=== PATIENT | male | born 1955 | race Caucasian/White ===

== ENCOUNTER 2017-08-17 09:46 | Emergency (ER) | payer MEDICAID ==
[2017-08-17] MEDS ORDERED: ONDANSETRON 4 MG TAB.RAPDIS PO ONE (10:15)
--- NOTE | 2017-08-17 10:16 | ER Document Report ---
ED General - General Chief Complaint: Probable Seizure Stated Complaint: POSSIBLE SEIZURE Time Seen by Provider: 08/17/17 10:09 Mode of Arrival: Medic Information source: Patient Notes: Patient is a 62-year-old male who presents to the ER today via EMS for syncopal episode per patient. Patient states that he felt lightheaded and fell down at his home where he passed out for an unknown amount of time as it was unwitnessed because he was by himself. Patient has never been here before, but EMS reports that they have picked him up multiple times for seizures due to alcohol withdrawal. Patient states that he last had alcohol "weeks ago." He denies drinking yesterday. He denies any history of seizures, states that he "just passed out." Patient denies any history of passing out, cardiac history. He denies any headache or other symptoms at this time. - Related Data Allergies/Adverse Reactions: No Known Allergies Allergy (Unverified 08/17/17 13:36) Past Medical History - General Information source: Patient, Emergency Med Personnel - Social History Smoking Status: Current Every Day Smoker Family History: Reviewed & Not Pertinent Review of Systems - Review of Systems Constitutional: No symptoms reported EENT: No symptoms reported Cardiovascular: No symptoms reported Respiratory: No symptoms reported Gastrointestinal: No symptoms reported Genitourinary: No symptoms reported Male Genitourinary: No symptoms reported Musculoskeletal: No symptoms reported Skin: No symptoms reported Hematologic/Lymphatic: No symptoms reported Neurological/Psychological: See HPI Physical Exam - Vital signs Vitals: Resp Pulse Ox 18 94 08/17/17 09:59 08/17/17 09:59 - Notes Notes: PHYSICAL EXAMINATION: GENERAL: Disheveled, dirty, in no acute distress. HEAD: Atraumatic, normocephalic. EYES: Pupils equal round and reactive to light, extraocular movements intact, sclera anicteric, conjunctiva are normal. ENT: ear canals without erythema or foreign body, TMs pearly hilliard with good bony landmarks, nares patent, oropharynx clear without exudates. Moist mucous membranes. Airway patent NECK: Normal range of motion, supple without lymphadenopathy LUNGS: CTAB and equal. No wheezes rales or rhonchi. HEART: Regular rate and rhythm without murmurs ABDOMEN: Soft, no tenderness. No guarding, no rebound BACK: no vertebral tenderness, normal ROM GI/: no CVA tenderness EXTREMITIES: Normal range of motion, no pitting edema. No cyanosis. NEUROLOGICAL: Cranial nerves grossly intact. Normal sensory/motor exams. Good and equal strength bilaterally, Kernig and Brudzinski's signs negative, Romberg' s test normal, normal heel to crow testing PSYCH: Normal mood, normal affect. SKIN: Warm, Dry, normal turgor, no rashes or lesions noted Course - Re-evaluation Re-evalutation: 08/17/17 13:11 Patient is alert and oriented 3, tells me he has no history of seizures and that he "just passed out." Patient is disheveled but alcohol level was less than [address] of the head negative for any acute pathology, IV was attempted for fluids and antibiotics as patient does have 152 white blood cells and moderate leukocytes with positive nitrites on urinalysis today. I did talk to patient about this and he states that it has been burning whenever he urinates. He states this been going on for approximately a week. He denies any back pain. We attempted to give him Rocephin IV here, but an IV was unable to be placed, patient after 3 attempts of placing an IV refused to have any more treatment here and just wanted to go home. I will send patient home on oral antibiotics. I did offer him a Rocephin injection IM but he refuses this as well stating "I promise I will take my antibiotics." CK was also elevated today, over 1,000. I advised patient of this abnormal lab value, stating that we usually do admit for IV fluids at least but he refuses. pt wants to leave, refuses any further treatment here in ER. 08/18/17 07:20 - Vital Signs Vital signs: Temp Pulse Resp BP Pulse Ox 98.5 F 16 188/90 H 96 08/17/17 10:05 08/17/17 12:00 08/17/17 10:05 08/17/17 12:00 - Laboratory Result Diagrams: 08/17/17 10:04 08/17/17 10:04 Laboratory results interpreted by me: 08/17/17 08/17/17 08/17/17 10:04 10:04 10:04 RDW 14.4 H Plt Count 125 L Glucose 163 H Direct Bilirubin 0.6 H AST 142 H ALT 80 H Creatine Kinase 1360 H CK-MB (CK-2) 13.30 H Urine Protein Urine Ketones Urine Blood Urine Nitrite Urine Urobilinogen Ur Leukocyte Esterase 08/17/17 11:19 RDW Plt Count Glucose Direct Bilirubin AST ALT Creatine Kinase CK-MB (CK-2) Urine Protein >=500 H Urine Ketones TRACE H Urine Blood MODERATE H Urine Nitrite POSITIVE H Urine Urobilinogen 4.0 H Ur Leukocyte Esterase MODERATE H Discharge - Discharge Clinical Impression: Syncope and collapse UTI (urinary tract infection) Qualifiers: Urinary tract infection type: site unspecified Hematuria presence: with hematuria Qualified Code(s): N39.0 - Urinary tract infection, site not specified Condition: Stable Disposition: HOME, SELF-CARE Additional Instructions: Return immediately for any new or worsening symptoms. Follow up with primary care provider, call tomorrow to make followup appointment. Prescriptions: Cephalexin Monohydrate [Keflex 500 mg Capsule] 500 mg PO BID 10 Days #20 capsule Referrals: RYAN PRADO PA [NO LOCAL MD] - Follow up as needed
[2017-08-17 10:45] LABS: ABSOLUTE EOSINOPHILS # (AUTO) 0.1 10^3/uL (0.0-0.6); ABSOLUTE LYMPHOCYTES (AUTO) 1.2 10^3/uL (0.5-4.7); ABSOLUTE MONOCYTES (AUTO) 0.7 10^3/uL (0.1-1.4); ABSOLUTE NEUT (AUTO) 4.4 10^3/uL (1.7-8.2); BASOPHILS % (AUTO) 0.5 % (0-2); EOSINOPHILS % (AUTO) 1.2 % (0-6); HEMATOCRIT 44.6 % (37.9-51.0); HEMOGLOBIN 15.5 g/dL (13.5-17.0); MEAN CORPUSCULAR HEMOGLOBIN 32.3 pg (27.0-33.4); MEAN CORPUSCULAR HGB CONC 34.8 g/dL (32.0-36.0); MEAN CORPUSCULAR VOLUME 93 fl (80-97); MONOCYTES % (AUTO) 11.5 % (3-13); PLATELET COUNT 125 10^3/uL (150-450); RED BLOOD COUNT 4.81 10^6/uL (4.35-5.55); RED CELL DISTRIBUTION WIDTH 14.4 % (11.5-14.0); SEGMENTED NEUTROPHILS % (AUTO) 67.8 % (42-78); TOTAL CELLS COUNTED % (AUTO) 100 %; WHITE BLOOD COUNT 6.5 10^3/uL (4.0-10.5)
[2017-08-17 10:54] LABS: ALANINE AMINOTRANSFERASE 80 U/L (21-72); ALBUMIN 4.4 g/dL (3.5-5.0); ALKALINE PHOSPHATASE 81 U/L (38-126); ANION GAP 16 (5-19); ASPARTATE AMINO TRANSFERASE 142 U/L (17-59); BILIRUBIN,DIRECT 0.6 mg/dL (0.0-0.4); BILIRUBIN,TOTAL 1.3 mg/dL (0.2-1.3); BLOOD UREA NITROGEN 17 mg/dL (7-20); CALCIUM 9.7 mg/dL (8.4-10.2); CARBON DIOXIDE 23 mmol/L (22-30); CHLORIDE 102 mmol/L (98-107); CREATINE KINASE 1360 U/L (55-170); GLUCOSE 163 mg/dL (75-110); POTASSIUM 4.2 mmol/L (3.6-5.0); SODIUM 141.2 mmol/L (137-145)
[2017-08-17 10:55] LABS: ALCOHOL < 10 mg/dL (NONE DETECTED)
[2017-08-17 11:06] LABS: CREATINE KINASE MB 13.3 ng/mL (<4.55)
[2017-08-17 11:10] LABS: TROPONIN I 0.037 ng/mL
[2017-08-17 11:12] VITALS: BP 188/90
--- NOTE | 2017-08-17 11:17 | RADIOLOGY REPORT (SQ) ---
EXAM DESCRIPTION: CT HEAD WITHOUT COMPLETED DATE/TIME: 08/17/2017 10:58 am REASON FOR STUDY: syncope, alcohol COMPARISON: None. TECHNIQUE: Axial images acquired through the brain without intravenous contrast. Images reviewed wi th bone, brain and subdural windows. Additional sagittal and coronal reconstructions were generated. Images stored on PACS. All CT scanners at this facility use dose modulation, iterative reconstruction, and/or weight based d osing when appropriate to reduce radiation dose to as low as reasonably achievable (ALARA). [facility]: Dose Right [facility]: CareDose [facility]: Dose Right [facility]: Teradose 4D [facility]: Smart ZinMobi RADIATION DOSE: CT Rad equipment meets quality standard of care and radiation dose reduction techniq ues were employed. CTDIvol: 53.2 mGy. DLP: 1795 mGy-cm. mGy. LIMITATIONS: Motion artifact limits the examination. FINDINGS: VENTRICLES: Prominent commensurate with the sulci. The cisterns are patent. CEREBRUM: Prior left frontal parietal lobe and parietal occipital infarcts. Chronic mild small vess el ischemic changes. No masses. No hemorrhage. No midline shift. No evidence for acute infarction . CEREBELLUM: No masses. No hemorrhage. No alteration of density. No evidence for acute infarction. EXTRAAXIAL SPACES: Atrophy. No fluid collections. No masses. ORBITS AND GLOBE: No intra- or extraconal masses. Normal contour of globe without masses. CALVARIUM: No fracture. PARANASAL SINUSES: A crow of the nasal septum to the left of the midline. No fluid or mucosal thick ening. SOFT TISSUES: No mass or hematoma. OTHER: No other significant finding. IMPRESSION: 1 No acute intracranial abnormality. 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 3. Atrophy and chronic small vessel ischemic changes. 4 Examination is limited due to motion artifact. EVIDENCE OF ACUTE STROKE: NO. COMMENT: Quality ID # [id number]: Final reports with documentation of one or more dose reduction techniques (e.g., Automated exposure control, adjustment of the mA and/or kV according to patient size, use of iterative reconstruction technique) TECHNICAL DOCUMENTATION: JOB ID: [id number] [place]- All Rights Reserved Reading location - IP/workstation name: [email or web address]
[2017-08-17] MEDS ORDERED: NORMAL SALINE 1000 ML 1,000 ML IV ONE (11:31)
[2017-08-17] MEDS ORDERED: LORAZEPAM INJ 2 MG/1 ML VIAL IV ONE (11:32)
[2017-08-17 11:42] LABS: APPEARANCE,URINE SLIGHTLY-CLOUDY; BILIRUBIN,URINE NEGATIVE (NEGATIVE); COLOR,URINE YELLOW; GLUCOSE, URINE NEGATIVE (NEGATIVE); KETONES,URINE TRACE mg/dL (NEGATIVE); LEUKOCYTE ESTERASE,URINE MODERATE (NEGATIVE); NITRITE,URINE POSITIVE (NEGATIVE); PROTEIN,URINE >=500 mg/dL (NEGATIVE); URINE SPECIFIC GRAVITY 1.017
[2017-08-17] MEDS ORDERED: CEFTRIAXONE INJ 1000 MG VIAL IV ONE (11:52)
[2017-08-17 12:20] LABS: URINE AMPHETAMINES SCREEN NEGATIVE; URINE BARBITURATES SCREEN NEGATIVE; URINE BENZODIAZEPINES SCREEN NEGATIVE; URINE COCAINE SCREEN NEGATIVE; URINE MARIJUANA (THC) SCREEN NEGATIVE; URINE METHADONE SCREEN NEGATIVE; URINE PHENCYCLIDINE SCREEN NEGATIVE
--- NOTE | 2017-08-17 13:28 | EKG REPORT ---
SEVERITY:- ABNORMAL ECG - SINUS RHYTHM PROBABLE LEFT ATRIAL ABNORMALITY LEFT VENTRICULAR HYPERTROPHY PROLONGED QT INTERVAL : Confirmed by: Urbano Boone MD 17-Aug-2017 13:28:00
== END 2017-08-17 13:15 | disposition home or self-care (01) ==
LOC: ER 09:46
DX: R55 Syncope and collapse (principal); N39.0 Urinary tract infection, site not specified; R42 Dizziness and giddiness; W19.XXXA Unspecified fall, initial encounter; F17.200 Nicotine dependence, unspecified, uncomplicated
CPT/HCPCS: 93005; 99285; 96361; 96374; 36415; 87086; 82553; 80307 ×2; 82550; 85025; 87088; 80053; 81001; 84484; 87186; 70450; 93010; J2060; J7030

== ENCOUNTER 2018-04-14 18:34 | Emergency (ER) | payer MEDICAID ==
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
[2018-04-14] MEDS ORDERED: LIDOCAINE 1% INJ-PF (10 MG/ML) 30 ML SDV INJ ONE (19:05)
[2018-04-14 20:48] VITALS: BP 133/80
== END 2018-04-14 20:45 | disposition home or self-care (01) ==
LOC: ER 18:34
PROC: 0HQFXZZ Repair Right Hand Skin, External Approach (ICD-10-PCS; principal; 2018-04-14)
DX: S61.210A Laceration without foreign body of right index finger without damage to nail, initial encounter (principal); F10.920 Alcohol use, unspecified with intoxication, uncomplicated; W25.XXXA Contact with sharp glass, initial encounter; I10 Essential (primary) hypertension
CPT/HCPCS: 99282